=== PATIENT | female | born 1990 | race Caucasian/White ===

== ENCOUNTER 2016-07-06 20:28 | Emergency (ER) | payer OTHER | END 2016-07-06 21:35 | disposition home or self-care (01) | LOC: ER1 20:28 | DX: L50.0 Allergic urticaria (principal) | CPT/HCPCS: 96372; 99282; J1100 ==

== ENCOUNTER 2021-04-09 07:57 | Emergency (ER) | payer OTHER ==
[2021-04-09 10:08] LABS: HEMOGLOBIN 13.5 gm/dl (12.3-15.3); RED BLOOD COUNT 4.48 M/UL (4.00-5.10); WHITE BLOOD COUNT 6.4 K/UL (4.5-11.0)
[2021-04-09 10:31] LABS: BUN/CREATININE RATIO 21 (0-10)
[2021-04-09] MEDS ORDERED: MEDROL DOSEPAK 24 MG PO (11:18)
[2021-04-09] MEDS ORDERED: DELSYM30 MG/5 ML PO (11:18)
[2021-04-09] MEDS ORDERED: FLONASE 0.05% N16 GM (11:18)
[2021-04-09] MEDS ORDERED: IBUPROFEN600 MG PO (11:18)
== END 2021-04-09 11:40 | disposition home or self-care (01) ==
LOC: ER1 07:57
PROVIDERS: Physician Assistant Medical
DX: U07.1 COVID-19 (principal)
CPT/HCPCS: 0240U; 80053; 85025; 96374; 96375; 99283; J1885; J2765; J7030